=== PATIENT | male | born 1955 | race Caucasian/White ===

== ENCOUNTER → 2017-05-28 | Outpatient (CLI) | payer OTHER ==
[~2017-05-28] MED LIST: ALB17R INH; ALB18R INH; ALB6.7R INH; ASPI-839 PO; CHOL10005 PO; CHOL100058 PO; CIPDEXPT EACH EAR; CYCL10TA29 PO; DEXT15SY15 PO; DIPH-1 PO; DIPH-543 PO; DOXY-179 PO; FLUINH; GLUC-307 PO; IBU600 PO; INF100I IV; IOPAMIDOL 76% 75 ML INFUS BTL 75 ML ONE; IPIL50VI IV; LACT1CAP6 PO; LEVO50TA86 PO; LEVO750T44 PO; LEVO75TA73 PO; METH-543 PO; MOMR; OMEP-218 PO; ONDA4TAB PO; ONDA8TAB94 PO; OXYC-865 PO; PNEU0.5D3 IM; PRED-1 PO; PRED20TA6 PO; PROC10TA4 PO; RIVA15TA PO; RIVA20TA PO; SUCR1TAB85 PO; SULF-198 PO; TAZA30CR TP; TRIA15CR40 TP; TURM500C7 PO; [UNRECOGNIZED DRUG - OTHER] INH; turmeric
[2017-05-28 07:55] LABS: PLATELET COUNT, AUTOMATED 226 K/uL (150-450)
--- NOTE | 2017-06-01 09:52 | RADIOLOGY IMAGING REPORT ---
FACILITY: [facility] PATIENT NAME: Srinivas Nice : 1955 MR: [id number] V: [id number] EXAM DATE: ORDERING PHYSICIAN: JOAN RAMIREZ TECHNOLOGIST: Location: [facility] Patient: Srinivas Nice : 1955 Visit/Account:[id number] Date of Sevice: 05/28/2017 CHEST/AB/PELV CT W/CONTRAST HISTORY: Malignant melanoma follow-up ADDITIONAL HISTORY: None. TECHNIQUE: Following administration of IV contrast axial images acquired through the chest abdomen a nd pelvis during the portal venous phase. Coronal and sagittal reformatting was also performed. Dose Lowering Technique One of the following dose optimization techniques was utilized in the performance of this exam: Autom ated exposure control; adjustment of the mA and/or kV according to the patient's size; or use of an i terative reconstruction technique. Specific details can be referenced in the facility's radiology C T exam operational policy. CONTRAST: 75 mL Isovue-370 COMPARISON: March 09, 2017 FINDINGS: CHEST: Lungs/Pleura: 4 mm nodule in the right upper lobe is unchanged in size appears calcified and is best seen on image 45 of series 3. No other pulmonary nodules are identified. Coarse linear stranding i n the right lower lobe actually appears less prominent and less masslike when compared to the prior s tudy Mediastinum/lymph nodes: Negative. Heart/vessels: There are coronary artery vascular calcifications present study was not performed as a CTA although there does appear to be some residual thrombus in the right lower lobe arterial tree c onsistent with prior history of chronic thrombus Bones/soft tissues: There is an S-shaped scoliosis of the thoracic spine. No aggressive appearing b one lesions are seen ABDOMEN AND PELVIS: Hepatobiliary: The previously noted area of arterial enhancement in the medial right lobe now measur es 1.7 x 1.2 x 1 cm slightly increased in size previously measuring 1.3 x 1 x 0.9 cm. Spleen: Negative. Pancreas: Negative. Adrenals: Negative. Kidneys ureters and bladder : Kidneys appear unremarkable. The bladder wall is mildly thickened alth ough could be related to underdistention with urine Genitalia: Negative. GI: Small hiatal hernia Vessels/spaces/nodes: Small shotty mesenteric lymph nodes appear similar to the prior study Bones/soft tissues: There Is an umbilical hernia containing fat at least moderate spondylotic changes L5-S1 again noted. There are mild degenerative changes at the hip joints. No aggressive appearing bone lesions are seen Additional findings: None pertinent. IMPRESSION: Previously noted 4 mm nodule in the right upper lobe appears stable and appears calcified. No new pu lmonary nodules seen The coarse linear stranding in the right lower lobe actually appears less prominent and less masslike when compared the prior study There appears to be some residual chronic thrombus in the pulmonary right lower lobe arterial tree. The previous noted area of arterial enhancement in the medial right lobe of the liver is slightly mor e prominent now measuring 1.7 x 1.2 x 1 cm as opposed to 1.3 x 1 x 0.9 smears. This could be related to the timing of contrast injection. The previous MR of the abdomen from March 20, 2017 demonstr ated contrast enhancement pattern suggestive of a hemangioma however given the clinical history of me lanoma close clinical follow-up recommended Small hiatal hernia Additional chronic findings as described Report Dictated By: Kelly De La Cruz MD at 05/28/2017 11:46 AM Report E-Signed By: Kelly De La Cruz MD at 05/28/2017 2:00 PM WSN:[email or web address]
== END ==
LOC: RAD 07:29
PROVIDERS: ATTEND Internal Medicine
DX: R91.8 Other nonspecific abnormal finding of lung field (principal); I27.82 Chronic pulmonary embolism; K44.9 Diaphragmatic hernia without obstruction or gangrene
CPT/HCPCS: 36415; 71260; 74177; 83615; 85007; 85027; Q9967; 82040; 82247; 82310; 82374; 82435; 82565; 82947; 84075; 84132; 84155; 84295; 84450; 84460; 84520

== ENCOUNTER 2017-06-23 09:15 | Outpatient (RCR) | payer OTHER ==
--- NOTE | 2017-05-28 14:05 | RADIOLOGY IMAGING REPORT ---
FACILITY: [facility] [place] PATIENT NAME: Srinivas Nice : 1955 MR: [id number] V: [id number] EXAM DATE: ORDERING PHYSICIAN: JOAN RAMIREZ TECHNOLOGIST: Location: [facility] Patient: Srinivas Nice : 1955 Visit/Account:[id number] Date of Sevice: 05/28/2017 CHEST/AB/PELV CT W/CONTRAST HISTORY: Malignant melanoma follow-up ADDITIONAL HISTORY: None. TECHNIQUE: Following administration of IV contrast axial images acquired through the chest abdomen a nd pelvis during the portal venous phase. Coronal and sagittal reformatting was also performed. Dose Lowering Technique One of the following dose optimization techniques was utilized in the performance of this exam: Autom ated exposure control; adjustment of the mA and/or kV according to the patient's size; or use of an i terative reconstruction technique. Specific details can be referenced in the facility's radiology C T exam operational policy. CONTRAST: 75 mL Isovue-370 COMPARISON: March 09, 2017 FINDINGS: CHEST: Lungs/Pleura: 4 mm nodule in the right upper lobe is unchanged in size appears calcified and is best seen on image 45 of series 3. No other pulmonary nodules are identified. Coarse linear stranding i n the right lower lobe actually appears less prominent and less masslike when compared to the prior s tudy Mediastinum/lymph nodes: Negative. Heart/vessels: There are coronary artery vascular calcifications present study was not performed as a CTA although there does appear to be some residual thrombus in the right lower lobe arterial tree c onsistent with prior history of chronic thrombus Bones/soft tissues: There is an S-shaped scoliosis of the thoracic spine. No aggressive appearing b one lesions are seen ABDOMEN AND PELVIS: Hepatobiliary: The previously noted area of arterial enhancement in the medial right lobe now measur es 1.7 x 1.2 x 1 cm slightly increased in size previously measuring 1.3 x 1 x 0.9 cm. Spleen: Negative. Pancreas: Negative. Adrenals: Negative. Kidneys ureters and bladder : Kidneys appear unremarkable. The bladder wall is mildly thickened alth ough could be related to underdistention with urine Genitalia: Negative. GI: Small hiatal hernia Vessels/spaces/nodes: Small shotty mesenteric lymph nodes appear similar to the prior study Bones/soft tissues: There Is an umbilical hernia containing fat at least moderate spondylotic changes L5-S1 again noted. There are mild degenerative changes at the hip joints. No aggressive appearing bone lesions are seen Additional findings: None pertinent. IMPRESSION: Previously noted 4 mm nodule in the right upper lobe appears stable and appears calcified. No new pu lmonary nodules seen The coarse linear stranding in the right lower lobe actually appears less prominent and less masslike when compared the prior study There appears to be some residual chronic thrombus in the pulmonary right lower lobe arterial tree. The previous noted area of arterial enhancement in the medial right lobe of the liver is slightly mor e prominent now measuring 1.7 x 1.2 x 1 cm as opposed to 1.3 x 1 x 0.9 smears. This could be related to the timing of contrast injection. The previous MR of the abdomen from March 20, 2017 demonstr ated contrast enhancement pattern suggestive of a hemangioma however given the clinical history of me lanoma close clinical follow-up recommended Small hiatal hernia Additional chronic findings as described Report Dictated By: Kelly De La Cruz MD at 05/28/2017 11:46 AM Report E-Signed By: Kelly De La Cruz MD at 05/28/2017 2:00 PM WSN:[email or web address]
[2017-06-01 09:07] VITALS: BP 117/72
--- NOTE | 2017-06-03 04:47 | [facility] ONCOLOGY NOTE ---
EVENT DATE: June 01, 2017 CHIEF COMPLAINT/REASON FOR VISIT The patient is a pleasant 61-year-old gentleman with a history of stage IIIb malignant melanoma, having finished adjuvant Yervoy stopped due to side effects here for followup. HISTORY OF PRESENT ILLNESS The patient returns. He has a history of stage IIIb melanoma (pT2b pN2a cM0) that was treated with Yervoy adjuvantly. He considered our clinical trial, but was unable to travel for it. He tolerated the first three doses, but developed autoimmune colitis with the fourth cycle, and it was stopped. Steroids and time did not adequately help, and he received a dose of Remicade. Thankfully, Remicade helped, and the diarrhea stopped. He now has normal bowel movements. We discussed multiple symptoms including skin changes, energy changes, and I am concerned that most of these issues are due to insufficient replacement of his thyroid. His most recent TSH was slightly elevated in the 7-8 range. He has seen endocrinology and has followup with Dr. Randall in June. However, given his symptoms and TSH, I feel we need to increase his dose today. Unfortunately the patient developed a recurrent VTE in October 2016 and is now on Xarelto indefinitely. In November 2016, we discussed the differences, pros and cons of Xarelto and Coumadin, and he elects to continue Xarelto. Hopeful that they will develop a reversal agent in the future. He has an indeterminate lesion in the liver, which we believe is a hemangioma. It is slightly larger on the most recent scan, but this may be due to contrast. We will continue to follow with imaging. PAST MEDICAL HISTORY 1. Malignant melanoma. 2. History of knee surgery. 3. History of hernia repair. SOCIAL HISTORY He enjoys skiing. He is and has presented with his in the past. He lives here in [place]. FAMILY HISTORY Unremarkable. No melanoma in the family. His parents are alive and well in their 90's. REVIEW OF SYSTEMS CONSTITUTIONAL: No fevers, chills or weight change. HEENT: No headache or vision changes. CARDIOVASCULAR: No chest pain, dyspnea on exertion or edema. RESPIRATORY: No shortness of breath, wheeze or cough. GI: No nausea, vomiting or diarrhea. : No dysuria or hematuria. MUSCULOSKELETAL: No joint pain. He does have some left back pain from an old accident decades ago. PSYCHIATRIC: No anxiety or depression. ENDOCRINE: No heat or cold intolerance. SKIN: No concerning rashes or lesions today. He does see the efficiency manager regularly. The skin is dry. LYMPHATIC: No concerning lumps or bumps. The remainder of the 14-point review of systems otherwise negative. PHYSICAL EXAMINATION VITAL SIGNS: Blood pressure 117/72, pulse 54, respiratory rate 16, temperature 96.4 Fahrenheit, oxygen saturation 96% on room air. Weight 84.2 kg. Pain 0/10 , fatigue 0/10. GENERAL: Stable condition, resting comfortably in the chair. HEENT: Normocephalic, atraumatic. LYMPHATIC: No cervical, supraclavicular, axillary adenopathy. CARDIOVASCULAR: Regular rate and rhythm. LUNGS: Clear. ABDOMEN: Soft. SKIN: No concerning lesions that I see today. Remainder of physical exam otherwise unremarkable. IMPRESSION AND PLAN Mr. Nice is a pleasant 61-year-old gentleman with the followin. Stage IIIB malignant melanoma, having completed four doses of Yervoy adjuvantly. 2. 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 The diarrhea resolved with Remicade, and we appreciate Dr. Randall in Endocrinology. We would like to increase his thyroid to 75 mcg daily today given his symptoms and high TSH. 3. 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 Plan to use Xarelto indefinitely. He has a known prothrombin gene mutation diagnosed in 2007. 4. Indeterminate liver mass, likely hemangioma. Will repeat imaging in 3-6 months. I answered all of his questions today. Billing: Return visit level 4. Total time 30 minutes, counseling time 20. High risk, high complexity. MTDD
[~2017-06-23 09:15] MED LIST changes: +CEPH-13 PO; +DEXTROSE 5%(*) 100 ML BAG 100 ML IVPB PRN; -IOPAMIDOL 76% 75 ML INFUS BTL 75 ML ONE; +LIDOCAINE/SOD BICARB 8.4% SYR ID PRN; +NS(*) 0.9% 100 ML BAG 100 ML IVPB PRN
[2017-06-23 09:23] VITALS: BP 111/68
== END 2017-06-24 15:06 | disposition home or self-care (01) ==
LOC: SPU 09:15
PROVIDERS: ATTEND Internal Medicine
DX: C43.9 Malignant melanoma of skin, unspecified (principal); K52.89 Other specified noninfective gastroenteritis and colitis; E31.8 Other polyglandular dysfunction; Z86.718 Personal history of other venous thrombosis and embolism; R16.0 Hepatomegaly, not elsewhere classified
CPT/HCPCS: 99212

== ENCOUNTER → 2017-06-29 | Outpatient (CLI) | payer OTHER ==
[~2017-06-29] MED LIST changes: -DEXTROSE 5%(*) 100 ML BAG 100 ML IVPB PRN; -LIDOCAINE/SOD BICARB 8.4% SYR ID PRN; -NS(*) 0.9% 100 ML BAG 100 ML IVPB PRN
== END ==
LOC: LAB 07:40
PROVIDERS: ATTEND Internal Medicine
DX: E03.9 Hypothyroidism, unspecified (principal)
CPT/HCPCS: 36415; 84439; 84443

== ENCOUNTER → 2017-09-21 | Outpatient (CLI) | payer OTHER | LOC: LAB 07:01 | PROVIDERS: ATTEND Internal Medicine Medical Oncology | DX: R53.83 Other fatigue (principal) | CPT/HCPCS: 36415; 82040; 82247; 82310; 82374; 82435; 82565; 82947; 84075; 84132; 84155; 84295; 84450; 84460; 84520 ==

== ENCOUNTER → 2017-09-21 | Outpatient (CLI) | payer OTHER ==
[~2017-09-21] MED LIST changes: +IOPAMIDOL 76% 75 ML INFUS BTL 75 ML ONE
--- NOTE | 2017-09-21 13:26 | RADIOLOGY IMAGING REPORT ---
FACILITY: [facility] [place] PATIENT NAME: Srinivas Nice : 1955 MR: [id number] V: [id number] EXAM DATE: ORDERING PHYSICIAN: WILTON AGUIAR TECHNOLOGIST: Location: [facility] Patient: Srinivas Nice : 1955 Visit/Account:[id number] Date of Sevice: 09/21/2017 CHEST W CONTRAST History: Melanoma of back TECHNIQUE: Contiguous axial images were performed through the chest to the level of the adrenal gla nds following the administration of IV contrast. Coronal and sagittal reformatting was also perform ed. Contrast: 75 mL Isovue-370 COMPARISON STUDIES: CT chest abdomen and pelvis May 28, 2017. Lungs / Pleura: 4 mm partially calcified nodule in the right upper lobe appears unchanged best seen on image 154 of series 4 no new pulmonary nodules are seen. There is linear scarring in the right l ower lobe similar to the prior study. No evidence of pleural effusions. Mediastinum/nodes: negative. Heart and vessels: Coronary artery calcifications again noted. Chronic thrombus in the right lower lobe arterial tree appears similar to the prior study Musculoskeletal / Body wall: S-shaped scoliosis of the thoracic spine. No aggressive appearing bon e lesions are seen Upper abdomen: Please see today's CT of the abdomen and pelvis dictation for findings below the alejandro phragm IMPRESSION: 4 mm partially calcite nodule right upper lobe appears stable Right basilar scarring appears stable There is chronic thrombus in the right lower lobe pulmonary arterial tree that appears stable Please see today's CT of abdomen pelvis dictation for findings below the diaphragm Report Dictated By: Kelly De La Cruz MD at 09/21/2017 1:11 PM Report E-Signed By: Kelly De La Cruz MD at 09/21/2017 1:22 PM WSN:[email or web address]
--- NOTE | 2017-09-21 14:13 | RADIOLOGY IMAGING REPORT ---
FACILITY: [facility] [place] [place] PATIENT NAME: Srinivas Nice : 1955 MR: [id number] V: [id number] EXAM DATE: ORDERING PHYSICIAN: WILTON AGUIAR TECHNOLOGIST: [place] [facility] [place] Srinivas Nice : 1955 Visit/Account:[id number] Date of Sevice: 09/21/2017 ABDOMEN/PELVIS W/WO CONTRAST HISTORY: Malignant melanoma TECHNIQUE: Axial images acquired through the abdomen/pelvis both with and without IV contrast.. Hasmukh nal and sagittal reformatting also performed. Dose Lowering Technique One of the following dose optimization techniques was utilized in the performance of this exam: Autom ated exposure control; adjustment of the mA and/or kV according to the patient's size; or use of an i terative reconstruction technique. Specific details can be referenced in the facility's radiology C T exam operational policy. CONTRAST: 75 mL Isovue-370 COMPARISON: CT chest abdomen and pelvis May 28, 2017 FINDINGS: Visualized lung bases: Small amount of right basilar scarring unchanged Hepatobiliary: Previously noted area of enhancement in the medial right lobe is now only faintly see n measuring 1.3 x 1 x 0.8 cm. This previously measured 1.7 x 1.2 x 1 cm. This may part be due to th e difference in imaging timing following the contrast bolus. The previous study was performed in th e arterial phase current examination in the portal venous phase Spleen: Negative. Adrenals: Negative. Pancreas: Negative. Kidneys ureters and bladder: Negative. Genitalia: Prostate gland mildly enlarged impinging upon the floor the bladder. GI: Small hiatal hernia Vessels/spaces/nodes: Incidental retroaortic left renal vein Bones/soft tissues: Small Left inguinal hernia containing fat. Periumbilical hernia containing fat . Moderate to severe spondylotic changes L5-S1. Additional chronic findings No aggressive appearing bone lesions are seen Additional findings: None pertinent. IMPRESSION: The previously noted area of arterial enhancement in the medial right lobe of the liver appears less prominent although may be related to difference in imaging timing following contrast bolus. (The sanam or study was performed in the arterial phase and the current examination in the portal venous phase) Small hiatal hernia Small left inguinal hernia containing fat Periumbilical hernia containing fat Moderate to severe spondylotic changes L5-S1 Report Dictated By: Kelly De La Cruz MD at 09/21/2017 1:47 PM Report E-Signed By: Kelly De La Cruz MD at 09/21/2017 2:09 PM QUINNN:[email or web address]
== END ==
LOC: CT 01:40
PROVIDERS: ATTEND Internal Medicine Medical Oncology
DX: K44.9 Diaphragmatic hernia without obstruction or gangrene (principal); K40.90 Unilateral inguinal hernia, without obstruction or gangrene, not specified as recurrent; K42.9 Umbilical hernia without obstruction or gangrene; M47.897 Other spondylosis, lumbosacral region; N40.0 Benign prostatic hyperplasia without lower urinary tract symptoms
CPT/HCPCS: 71260; 74178; Q9967

== ENCOUNTER → 2017-11-04 | Outpatient (CLI) | payer OTHER ==
[~2017-11-04] MED LIST changes: -IOPAMIDOL 76% 75 ML INFUS BTL 75 ML ONE; +LEVO88TA45 PO
== END ==
LOC: LAB 16:10
PROVIDERS: ATTEND Internal Medicine
DX: E06.9 Thyroiditis, unspecified (principal)
CPT/HCPCS: 36415; 84436; 84443

== ENCOUNTER 2017-11-23 08:30 | Outpatient (RCR) | payer OTHER ==
[2017-08-27 08:44] LABS: PLATELET COUNT, AUTOMATED 229 K/uL (150-450)
[2017-11-18 14:34] VITALS: BP 111/73
[2017-11-18 14:59] LABS: PLATELET COUNT, AUTOMATED 229 K/uL (150-450)
[2017-11-23 08:36] VITALS: BP 105/66
--- NOTE | 2017-11-24 15:24 | [facility]ER ONCOLOGY NOTE ---
EVENT DATE: November 23, 2017 CHIEF COMPLAINT/REASON FOR VISIT Mr. Nice is a pleasant, 62-year-old gentleman with a history of stage IIIB malignant melanoma, having finished four doses of adjuvant Yervoy, but needed to stop due to excessive side effects. HISTORY OF PRESENT ILLNESS [place] returns. He has a history of stage IIIB melanoma (pT2b,pN2a,cM0) that was treated with Yervoy adjuvantly. He considered our clinical trial, but was unable to travel to [place] for it. He tolerated the first three doses extremely well, but developed autoimmune colitis and endocrine abnormalities with the fourth cycle and needed to be stopped. Supportive care and steroids did not help, and he required a dose of Remicade to stop the diarrhea. He now has normal bowel movements. No signs of relapse. He has had two superficial melanomas removed since this diagnosis. His main complaint today is fatigue, and I think this may be related to suboptimal replacement of cortisol. This is a moving target. He initially felt great with the 5 mg of prednisone, but has been increasing his exercise and often goes on four-hour bike rides. I think due to the stress, he needs to increase the dose. He states that he is doing this "every day," and so we may want to consider the baseline dose increase. Defer to Dr. Randall in Endocrinology, however. His TSH and free T4 were normal last week. Unfortunately, he developed recurrent VT in October 2016 and is now on Xarelto indefinitely. We have previously discussed the pros and cons of Xarelto versus Coumadin, including the lack of a reversal agent for Xarelto, and he would like to continue the Xarelto. He has an indeterminant lesion in the liver, which we believe is a hemangioma, and we will watch closely. I agree with Dr. Mills that we should be checking scans every three months for now given his high risk for relapse. PAST MEDICAL HISTORY 1. Malignant melanoma. 2. History of knee surgery. 3. History of hernia repair. SOCIAL HISTORY He enjoys skiing. He is and has presented with his in the past. He lives here in [place]. FAMILY HISTORY Unremarkable. No melanoma in the family. His parents are alive and well in their 90s. REVIEW OF SYSTEMS CONSTITUTIONAL: No fevers, chills, or weight change. HEENT: No headache or vision changes. CARDIOVASCULAR: No chest pain, dyspnea on exertion, or edema. RESPIRATORY: No shortness of breath, wheeze, or cough. GASTROINTESTINAL: No nausea, vomiting, or diarrhea. GENITOURINARY: No dysuria or hematuria. MUSCULOSKELETAL: No joint pain. He does have some left back pain from an old accident decades ago. PSYCHIATRIC: No anxiety or depression. ENDOCRINE: No heat or cold intolerance. SKIN: No concerning rashes or lesions today. He does see the instructor looping regularly. The skin is dry. LYMPHATIC: No concerning lumps or bumps. The remainder of the 14-point review of systems otherwise negative. PHYSICAL EXAMINATION VITAL SIGNS: Blood pressure 105/66, pulse 55, respiratory rate 16, temperature 96.6 Fahrenheit, oxygen saturation 97% on room air. Weight 83.8 kg. Pain zero/10, fatigue zero/10. GENERAL: Stable condition, resting comfortably in the chair. HEENT: Normocephalic, atraumatic. SKIN: Deferred today as he is seeing his instructor looping tomorrow. Skin is dry, but no lesions of concern seen. CARDIOVASCULAR: Regular rate and rhythm. LUNGS: Clear. ABDOMEN: Soft, nontender. No organomegaly. LYMPHATIC: No appreciable cervical, supraclavicular, axillary, or inguinal adenopathy. NEUROLOGIC: Normal mood and affect. Remainder of physical exam otherwise unremarkable. IMPRESSION AND PLAN Mr. Nice is a pleasant, 62-year-old gentleman with the followin. Stage IIIB malignant melanoma, having completed four doses of Yervoy adjuvantly. 2. 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 The diarrhea resolved with Velcade, and we appreciate Dr. Randall in Endocrinology. His thyroid dose is now 88 mcg, and he is doing well with this. We may need to increase the prednisone from 5 mg to 7.5 mg, but I defer to Dr. Randall about this. The patient is going to consider calling him if the fatigue continues. The reason would be his regular exercise and stress from that requiring more prednisone. 3. 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 Plan to continue Xarelto indefinitely. He has a known prothrombin gene mutation that was diagnosed in 2007. 4. Indeterminate liver mass, likely hemangioma. Repeat imaging next month. I answered all of his questions today. BILLING Return visit level 4, total time 30 minutes, counseling time 20. MTDD
== END 2017-11-24 ==
LOC: ONC 08:30
PROVIDERS: ATTEND Internal Medicine
DX: C43.9 Malignant melanoma of skin, unspecified (principal); Z86.2 Personal history of diseases of the blood and blood-forming organs and certain disorders involving the immune mechanism; I26.99 Other pulmonary embolism without acute cor pulmonale; R53.83 Other fatigue; Z79.01 Long term (current) use of anticoagulants; E03.9 Hypothyroidism, unspecified
CPT/HCPCS: 36415; 82040; 82247; 82310; 82374; 82435; 82565; 82947; 83615; 84075; 84132; 84155; 84295; 84439; 84443; 84450; 84460; 84520; 85025; 99212

== ENCOUNTER 2017-12-30 06:54 | Outpatient (RCR) | payer OTHER ==
[2017-12-30 11:09] VITALS: BP 102/69
[2017-12-30 11:36] LABS: PLATELET COUNT, AUTOMATED 235 K/uL (150-450)
[2018-02-02] MEDS ORDERED: AMOX-559 PO (13:27)
[2018-02-02] MEDS ORDERED: CLOB15OI16 TP (13:39)
[2018-02-02] MEDS ORDERED: hydrocortisone PO (13:43)
--- NOTE | 2018-02-05 10:17 | NUR ---
Pt called today to request a counseling referral. SW spoke with pt over the phone about his needs and then emailed (per his request) a list of counselors that we commonly refer to at our clinic.
== END 2018-03-30 ==
LOC: ONC 06:54
PROVIDERS: ATTEND Internal Medicine
DX: C43.9 Malignant melanoma of skin, unspecified (principal); I26.99 Other pulmonary embolism without acute cor pulmonale; Z86.2 Personal history of diseases of the blood and blood-forming organs and certain disorders involving the immune mechanism
CPT/HCPCS: 36415; 82040; 82247; 82310; 82374; 82435; 82565; 82947; 83615; 84075; 84132; 84155; 84295; 84439; 84443; 84450; 84460; 84520; 85025

== ENCOUNTER → 2018-03-05 | Outpatient (CLI) | payer OTHER ==
[~2018-03-05] MED LIST changes: +AMOX-559 PO; +CLOB15OI16 TP; +hydrocortisone PO
== END ==
LOC: LAB 11:19
PROVIDERS: ATTEND Internal Medicine
DX: E03.8 Other specified hypothyroidism (principal); E06.3 Autoimmune thyroiditis
CPT/HCPCS: 36415; 82533; 84439; 84443

== ENCOUNTER 2018-04-06 08:28 | Outpatient (RCR) | payer OTHER ==
[~2018-04-06 08:28] MED LIST changes: +DEXTROSE 5%(*) 100 ML BAG 100 ML IVPB PRN; +LIDOCAINE/SOD BICARB 8.4% SYR ID PRN; +NS(*) 0.9% 100 ML BAG 100 ML IVPB PRN
[2018-04-06 08:56] LABS: PLATELET COUNT, AUTOMATED 243 K/uL (150-450)
[2018-04-06] MEDS ORDERED: IOPAMIDOL 76% 75 ML INFUS BTL 75 ML ONE (09:19)
--- NOTE | 2018-04-06 11:36 | RADIOLOGY IMAGING REPORT ---
FACILITY: [facility] PATIENT NAME: Srinivas Nice : 1955 MR: [id number] V: [id number] EXAM DATE: ORDERING PHYSICIAN: JOAN RAMIREZ TECHNOLOGIST: Location: [facility] Patient: Srinivas Nice : 1955 Visit/Account:[id number] Date of Sevice: 04/06/2018 CT CHEST ABDOMEN PELVIS W/CON HISTORY: Metastatic melanoma follow-up ADDITIONAL HISTORY: None. TECHNIQUE: Following administration of IV contrast axial images acquired through the chest abdomen a nd pelvis during the portal venous phase. Coronal and sagittal reformatting was also performed.Dose Lowering Technique One of the following dose optimization techniques was utilized in the performance of this exam: Autom ated exposure control; adjustment of the mA and/or kV according to the patient's size; or use of an i terative reconstruction technique. Specific details can be referenced in the facility's radiology C T exam operational policy. CONTRAST: 75 mL Isovue-370 COMPARISON: CT chest abdomen pelvis May 28, [address] abdomen pelvis September 21, 2017 and MR the abd omen March 20, 2017 FINDINGS: CHEST: Lungs/Pleura: Calcified 4 mm pulmonary nodule in the right upper lobe has remained stable since Dece mb2016. This is best seen on image 47 of series 4 no other pulmonary nodules are seen. Linea r scarring in the right lower lobe remains unchanged Mediastinum/lymph nodes: Negative. Heart/vessels: There are coronary artery calcifications Bones/soft tissues: There are postsurgical changes in the right axilla ABDOMEN AND PELVIS: Hepatobiliary: The previously noted enhancing lesion in the medial right lobe of the liver is only f aintly seen and appears unchanged in size measuring approximately 1.2 x 1 x 0.8 cm. This is best helena reciated on the arterial phase imaging of the prior MR. No other abnormality the liver is seen. Spleen: Negative. Pancreas: Negative. Adrenals: Negative. Kidneys ureters and bladder : Negative. Genitalia: Prostate gland is mildly enlarged impinging upon the floor the bladder GI: Small hiatal hernia Vessels/spaces/nodes: Incidental left retroaortic renal vein there are several mesenteric lymph node s in the right lower quadrant slightly increased compared the prior study. The largest however measu res 1 x 0.8 cm. This is likely nonspecific Bones/soft tissues: There is a left inguinal hernia containing fat small periumbilical hernia also c ontains fat. No aggressive appearing bone lesions are seen. There is a S-shaped scoliosis of the th oracic spine and mild spondylotic changes in the thoracolumbar spine Additional findings: None pertinent. IMPRESSION: Calcified 4 mm pulmonary nodule right upper lobe has remained stable since March 09, 2017 Previously noted enhancing lesion medial right lobe of the liver is only faintly seen on this portal venous phase study. This appears unchanged in size with no new hepatic lesions seen. Small hiatal hernia Several small mesenteric lymph nodes in the right lower quadrant all measuring less than 1 cm in hori zontal short axis Additional chronic findings as described Report Dictated By: Kelly De La Cruz MD at 04/06/2018 10:52 AM Report E-Signed By: Kelly De La Cruz MD at 04/06/2018 11:31 AM WSN:[email or web address]
[2018-05-25] MEDS ORDERED: RIVA20TA PO (10:49)
== END 2018-07-04 ==
LOC: SPU 08:28
PROVIDERS: ATTEND Internal Medicine
DX: C43.9 Malignant melanoma of skin, unspecified (principal); I26.99 Other pulmonary embolism without acute cor pulmonale; Z86.2 Personal history of diseases of the blood and blood-forming organs and certain disorders involving the immune mechanism; R91.1 Solitary pulmonary nodule; K44.9 Diaphragmatic hernia without obstruction or gangrene
CPT/HCPCS: 36415; 71260; 74177; 83615; 85025; Q9967; 82040; 82247; 82310; 82374; 82435; 82565; 82947; 84075; 84132; 84155; 84295; 84450; 84460; 84520

== ENCOUNTER → 2018-09-17 | Outpatient (CLI) | payer OTHER ==
[~2018-09-17] MED LIST changes: -DEXTROSE 5%(*) 100 ML BAG 100 ML IVPB PRN; +HYDROC5PT PO; +IOPAMIDOL 76% 100 ML INFUS BTL 100 ML ONE; -LIDOCAINE/SOD BICARB 8.4% SYR ID PRN; -NS(*) 0.9% 100 ML BAG 100 ML IVPB PRN; +OMEP-126 PO
--- NOTE | 2018-09-17 09:31 | RADIOLOGY IMAGING REPORT ---
FACILITY: [facility] - [place] PATIENT NAME: Srinivas Nice : 1955 MR: [id number] V: [id number] EXAM DATE: ORDERING PHYSICIAN: WILTON AGUIAR TECHNOLOGIST: Location: [facility] - [place] Patient: Srinivas Nice : 1955 Visit/Account:[id number] Date of Sevice: 09/17/2018 CT CHEST ABDOMEN PELVIS W/CON HISTORY: Restaging melanoma TECHNIQUE: CT imaging was obtained through the chest, abdomen and pelvis with intravenous contrast. One of the following dose optimization techniques was utilized in the performance of this exam: autom ated exposure control; adjustment of the mA and/or kv according to patient size; or use of iterative reconstruction technique. Specific details can be referenced in the facility's radiology CT exam oper ational policy. CONTRAST: 75 mL of Isovue-370 COMPARISON: CT chest, abdomen and pelvis 04/06/2018 FINDINGS: CHEST: Lower neck: Negative. Vessels: Mild calcification of the LAD. Sequela of chronic right lower lobe pulmonary embolism, unc hanged. Heart and pericardium: Negative Mediastinum/hilum/lymph nodes: Interval progressive tissue attenuation cephalad to the left atrium w ith a component measuring 2.3 x 2.1 cm (series 2 image 61) measuring 50-60 Hounsfield units. Surroun ding pericardial recess fluid measures less than 10 Hounsfield units. No hilar, axillary or internal mammary lymphadenopathy. Lungs/pleura: Stable right upper lobe calcified granuloma. Stable right basilar scar. No new nodul e or pleural effusion. Bones/soft tissues: Negative. Other findings: None significant ABDOMEN/PELVIS: Hepatobiliary: Prior 1.2 cm enhancing segment 5 liver lesion is poorly visualized but grossly uncha nged. No new liver lesion. Spleen: Negative. Adrenals: Negative. Pancreas: Negative. Kidneys/ureters/bladder: Negative. Bowel/peritoneum/mesentery: Small hiatal hernia. No ascites. Clustered right lower quadrant lymph nodes measuring up to 0.9 x 0.8 cm (series 2 image 142), unchanged. Vessels: Retroaortic left renal vein. Lymph nodes: Negative. Pelvic genitourinary: Negative. Bones/soft tissues: Moderate degenerative disc disease at L5-S1. Moderate degenerative changes at t he bilateral hips. Multiple stable soft tissue nodules within the subcutaneous tissues adjacent to t he right shoulder measuring up to 5 mm (series 2 image 45). Small helical hernia containing fat. Other findings: None significant IMPRESSION: 1. Imaging of the chest reveals mild increasing soft tissue cephalad to the left atrium measuring up to 2.3 x 2.1. This is concerning for metastatic disease. 2. Imaging of the abdomen and pelvis reveals no gross interval change in a prior 1.2 cm enhancing le cindy within hepatic segment 5. There are stable clustered borderline enlarged right lower quadrant l ymph nodes measuring up to 0.9 x 0.8 cm. No new mass or ascites. 3. Imaging the soft tissues reveals multiple stable soft tissue nodules posterior to the right shoul larissa measuring up to 5 mm. Which are indeterminate for metastatic disease 4. Recommend PET/CT for further evaluation Report Dictated By: Donell Merritt MD at 09/17/2018 8:32 AM Report E-Signed By: Donell Merritt MD at 09/17/2018 9:26 AM QUINNN:SHANTE
== END ==
LOC: CT 01:46
PROVIDERS: ATTEND Internal Medicine Medical Oncology
DX: C43.9 Malignant melanoma of skin, unspecified (principal)
CPT/HCPCS: 71260; 74177; Q9967

== ENCOUNTER → 2018-10-26 | Outpatient (CLI) | payer OTHER ==
[~2018-10-26] MED LIST changes: -IOPAMIDOL 76% 100 ML INFUS BTL 100 ML ONE
[2018-10-26 14:17] VITALS: BP 125/69
== END ==
LOC: SPU 07:44
PROVIDERS: ATTEND Internal Medicine Hematology
DX: C79.31 Secondary malignant neoplasm of brain (principal)